=== PATIENT | female | born 1995 | race African-American/Black ===

== ENCOUNTER → 2020-04-14 | Outpatient (CLI) | payer OTHER ==
[~2020-04-14] MED LIST: CLEOCIN HCL300 MG PO; NAPROSYN500 MG PO; NORCO 325 MG-51 TAB PO; ZORVOLEX18 MG PO
== END ==
LOC: COL.RAD 09:00
DX: M25.512 Pain in left shoulder (principal)
CPT/HCPCS: A9585; Q9967

== ENCOUNTER 2020-04-23 15:20 | Emergency (ER) | payer SELFPAY ==
[~2020-04-23] VITALS: Ht 162.6 cm; Wt 109.1 kg
[2020-04-23 15:25] VITALS: TEMP 98.8
[2020-04-23] MEDS ORDERED: EPIPEN 2-PAK1 MG/ML IM (15:37)
[2020-04-23] MEDS ORDERED: PREDNISONE20 MG PO (15:37)
[2020-04-23 17:01] VITALS: BP 117/75; PULSE 105
== END 2020-04-23 17:05 | disposition home or self-care (01) ==
LOC: COL.ER 15:20
DX: T63.461A Toxic effect of venom of wasps, accidental (unintentional), initial encounter (principal); F17.210 Nicotine dependence, cigarettes, uncomplicated; Z79.52 Long term (current) use of systemic steroids
CPT/HCPCS: J7512

== ENCOUNTER 2020-05-24 13:07 | Emergency (ER) | payer MEDICAID ==
[~2020-05-24] VITALS: Ht 162.6 cm; Wt 154.5 kg
[~2020-05-24 13:07] MED LIST changes: +EPIPEN 2-PAK1 MG/ML IM; +PREDNISONE20 MG PO
[2020-05-24 13:13] VITALS: TEMP 97.8
[2020-05-24 14:04] LABS: ALBUMIN 3.8 gm/dL (3.5-5.0); BILIRUBIN,TOTAL 0.3 mg/dL (0.0-1.0); C-REACTIVE PROTEIN 1.8 mg/dL (0.0-0.9); CREATININE, serum 0.58 (0.52-1.25); TOTAL PROTEIN 6.9 gm/dL (6.4-8.2)
[2020-05-24] MEDS ORDERED: VYVANSE70 MG PO (14:23)
[2020-05-24] MEDS ORDERED: SYNTHROID0.125 MG/T PO (14:24)
[2020-05-24] MEDS ORDERED: ZYRTEC 10MG10 MG PO (14:24)
[2020-05-24 14:28] LABS: COLLECTION METHOD CLEAN CATCH
[2020-05-24 14:51] LABS: BASO % 0.4 % (0.0-2.0); EOS # 0.1 (0.0-0.7); EOS % 1.7 % (0-4.0); GRAN % 60.7 % (42.2-75.2); HEMATOCRIT 39.2 % (37.0-47.0); HEMOGLOBIN 12.4 g/dl (12.5-16.0); LYMPH # 2.5 (1.2-3.4); LYMPH % 30.8 % (20.0-51.0); MEAN CELL VOLUME 84 fl (80.0-100.0); MEAN CORPUSCULAR HEMOGLOBIN 27 pg (27.0-31.0); MEAN CORPUSCULAR HGB CONC 32 g/dl (33.0-37.0); MEAN PLATELET VOLUME 10.5 fl (7.4-10.4); MONO # 0.5 (0.1-0.6); PLATELET COUNT 441 K/mm3 (130-400); RED BLOOD COUNT 4.66 M/mm3 (4.10-5.30); REDCELL DISTRIBUTION WIDTH-CV 13.3 % (11.5-14.5)
[2020-05-24 14:58] LABS: MUCOUS Present /lpf; PH 7 (5-8); URINE APPEARANCE Cloudy; URINE BACTERIA Moderate /hpf; URINE BILIRUBIN Negative (NEGATIVE); URINE BLOOD Negative (NEGATIVE); URINE COLOR Yellow; URINE GLUCOSE Negative (NEGATIVE); URINE KETONE Negative (NEGATIVE); URINE LEUKOCYTE ESTERASE 1+ (NEGATIVE); URINE NITRATE Positive (NEGATIVE); URINE PROTEIN(semi-quant) Negative (NEGATIVE); URINE UROBILINOGEN Negative (NEGATIVE)
[2020-05-24] MEDS ORDERED: CIPRO 500MG TA500 MG PO (15:09)
[2020-05-24 15:14] LABS: STREP SCREEN NEGATIVE
[2020-05-24 15:46] VITALS: BP 134/80; PULSE 77
== END 2020-05-24 15:44 | disposition home or self-care (01) ==
LOC: COL.ER 13:07
PROVIDERS: Emergency Medicine
DX: J02.9 Acute pharyngitis, unspecified (principal); R05 Cough; R50.9 Fever, unspecified; F17.210 Nicotine dependence, cigarettes, uncomplicated; Z20.828 Contact with and (suspected) exposure to other viral communicable diseases

== ENCOUNTER 2020-10-11 16:08 | Emergency (ER) | payer MEDICAID ==
[~2020-10-11] VITALS: Ht 162.6 cm; Wt 150.9 kg
[~2020-10-11 16:08] MED LIST changes: +CIPRO 500MG TA500 MG PO; +SYNTHROID0.125 MG/T PO; +VYVANSE70 MG PO; +ZYRTEC 10MG10 MG PO
[2020-10-11 16:18] VITALS: TEMP 97.6
[2020-10-11 17:33] LABS: BASO # 0.1 (0.0-0.2); BASO % 0.5 % (0.0-2.0); EOS # 0.2 (0.0-0.7); EOS % 1.6 % (0-4.0); GRAN # 5.8 (1.4-6.5); GRAN % 59.9 % (42.2-75.2); HEMATOCRIT 41.8 % (37.0-47.0); HEMOGLOBIN 13.1 g/dl (12.5-16.0); LYMPH # 2.8 (1.2-3.4); LYMPH % 28.5 % (20.0-51.0); MEAN CELL VOLUME 83 fl (80.0-100.0); MEAN CORPUSCULAR HEMOGLOBIN 26 pg (27.0-31.0); MEAN CORPUSCULAR HGB CONC 31 g/dl (33.0-37.0); MEAN PLATELET VOLUME 9.4 fl (7.4-10.4); MONO # 0.9 (0.1-0.6); MONO % 8.7 % (1.7-9.3); PLATELET COUNT 491 K/mm3 (130-400); RED BLOOD COUNT 5.01 M/mm3 (4.10-5.30); REDCELL DISTRIBUTION WIDTH-CV 12.8 % (11.5-14.5)
[2020-10-11 17:48] LABS: ALBUMIN 4.3 gm/dL (3.5-5.0); BILIRUBIN,TOTAL 0.3 mg/dL (0.0-1.0); CALCIUM 9.5 mg/dL (8.4-10.2); CREATININE, serum 0.68 (0.52-1.25); POTASSIUM 4.1 mmol/L (3.4-5.0); TOTAL PROTEIN 7.8 gm/dL (6.4-8.2)
[2020-10-11 20:34] VITALS: BP 114/72; PULSE 87
== END 2020-10-11 20:37 | disposition home or self-care (01) ==
LOC: COL.ER 16:08
PROVIDERS: Physician Assistant
DX: S30.1XXA Contusion of abdominal wall, initial encounter (principal); E03.9 Hypothyroidism, unspecified; E66.01 Morbid (severe) obesity due to excess calories; F17.210 Nicotine dependence, cigarettes, uncomplicated; Z68.43 Body mass index [BMI] 50.0-59.9, adult; Z79.890 Hormone replacement therapy; Z88.0 Allergy status to penicillin; Z88.1 Allergy status to other antibiotic agents; Z88.2 Allergy status to sulfonamides; Z88.6 Allergy status to analgesic agent; W01.198A Fall on same level from slipping, tripping and stumbling with subsequent striking against other object, initial encounter
CPT/HCPCS: J1885; J2405; J2550; J7030; Q9967

== ENCOUNTER 2020-11-24 10:03 | Emergency (ER) | payer MEDICAID ==
[~2020-11-24] VITALS: Ht 162.6 cm; Wt 159.5 kg
[2020-11-24 11:07] LABS: BASO % 0.6 % (0.0-2.0); EOS # 0.3 (0.0-0.7); EOS % 4.6 % (0-4.0); GRAN % 57.2 % (42.2-75.2); HEMATOCRIT 37.4 % (37.0-47.0); HEMOGLOBIN 11.6 g/dl (12.5-16.0); LYMPH # 2.2 (1.2-3.4); LYMPH % 32.3 % (20.0-51.0); MEAN CELL VOLUME 85 fl (80.0-100.0); MEAN CORPUSCULAR HEMOGLOBIN 26 pg (27.0-31.0); MEAN CORPUSCULAR HGB CONC 31 g/dl (33.0-37.0); MEAN PLATELET VOLUME 9.3 fl (7.4-10.4); MONO # 0.4 (0.1-0.6); PLATELET COUNT 375 K/mm3 (130-400); RED BLOOD COUNT 4.39 M/mm3 (4.10-5.30)
[2020-11-24 11:22] LABS: ALBUMIN 3.4 gm/dL (3.5-5.0); BILIRUBIN,TOTAL 0.2 mg/dL (0.0-1.0); CALCIUM 8.9 mg/dL (8.4-10.2); CREATININE, serum 0.49 (0.52-1.25); POTASSIUM 3.8 mmol/L (3.4-5.0); TOTAL PROTEIN 6.5 gm/dL (6.4-8.2)
[2020-11-24 11:50] LABS: COLLECTION METHOD CLEAN CATCH
[2020-11-24 11:57] LABS: MUCOUS Present /lpf; PH 5 (5-8); URINE APPEARANCE Hazy; URINE BACTERIA None Seen /hpf; URINE BILIRUBIN Negative (NEGATIVE); URINE BLOOD Negative (NEGATIVE); URINE COLOR Yellow; URINE GLUCOSE Negative (NEGATIVE); URINE KETONE Negative (NEGATIVE); URINE LEUKOCYTE ESTERASE Negative (NEGATIVE); URINE NITRATE Negative (NEGATIVE); URINE PROTEIN(semi-quant) Negative (NEGATIVE); URINE RBC 0-2 /hpf
[2020-11-24] MEDS ORDERED: DOXYCYCLINE 10100 MG PO (14:16)
[2020-11-24 14:54] VITALS: BP 119/80; PULSE 92; TEMP 97.4
== END 2020-11-24 14:54 | disposition home or self-care (01) ==
LOC: COL.ER 10:03
PROVIDERS: Physician Assistant
DX: L03.316 Cellulitis of umbilicus (principal); D64.9 Anemia, unspecified; E03.9 Hypothyroidism, unspecified; F90.9 Attention-deficit hyperactivity disorder, unspecified type; F17.210 Nicotine dependence, cigarettes, uncomplicated; Z90.49 Acquired absence of other specified parts of digestive tract; Z32.02 Encounter for pregnancy test, result negative; Z79.890 Hormone replacement therapy; Z88.0 Allergy status to penicillin; Z88.1 Allergy status to other antibiotic agents; Z88.2 Allergy status to sulfonamides; Z88.6 Allergy status to analgesic agent
CPT/HCPCS: Q9967

== ENCOUNTER 2021-02-19 19:17 | Emergency (ER) | payer MEDICAID ==
[~2021-02-19] VITALS: Ht 162.6 cm; Wt 156.4 kg
[~2021-02-19 19:17] MED LIST changes: +DOXYCYCLINE 10100 MG PO
[2021-02-19 19:19] VITALS: TEMP 98
[2021-02-19 20:00] LABS: BASO % 0.5 % (0.0-2.0); EOS # 0.3 (0.0-0.7); EOS % 3.1 % (0-4.0); GRAN # 4.9 (1.4-6.5); GRAN % 60.3 % (42.2-75.2); HEMATOCRIT 41.6 % (37.0-47.0); HEMOGLOBIN 13.1 g/dl (12.5-16.0); LYMPH # 2.5 (1.2-3.4); MEAN CELL VOLUME 82 fl (80.0-100.0); MEAN CORPUSCULAR HEMOGLOBIN 26 pg (27.0-31.0); MEAN CORPUSCULAR HGB CONC 32 g/dl (33.0-37.0); MEAN PLATELET VOLUME 9.8 fl (7.4-10.4); MONO # 0.4 (0.1-0.6); MONO % 4.5 % (1.7-9.3); PLATELET COUNT 441 K/mm3 (130-400); RED BLOOD COUNT 5.06 M/mm3 (4.10-5.30); REDCELL DISTRIBUTION WIDTH-CV 12.1 % (11.5-14.5)
[2021-02-19 21:23] LABS: ALANINE AMINOTRANSFERASE 16 U/L (4-34); ALBUMIN 3.6 gm/dL (3.5-5.0); ALKALINE PHOSPHATASE 62 U/L (50-136); ANION GAP 7 mmol/L (7-16); AST,SGOT 23 U/L (15-37); BILIRUBIN,TOTAL 0.2 mg/dL (0.0-1.0); BLOOD UREA NITROGEN 10 mg/dL (7-17); CALCIUM 9.1 mg/dL (8.4-10.2); CARBON DIOXIDE 21 mmol/L (22-30); CHLORIDE 107 mmol/L (98-107); CREATININE, serum 0.54 (0.52-1.25); GLUCOSE 101 mg/dL (74-106); POTASSIUM 3.9 mmol/L (3.4-5.0); SODIUM 136 mmol/L (137-145); TOTAL PROTEIN 6.8 gm/dL (6.4-8.2)
[2021-02-19 21:26] LABS: PROLACTIN 14.3 ng/mL (3.0-18.6)
[2021-02-19 21:37] LABS: C-REACTIVE PROTEIN 1.7 mg/dL (0.0-0.9)
[2021-02-19 21:40] LABS: ALCOHOL(ethanol),MEDICAL < 10 mg/dL
[2021-02-19 21:51] VITALS: BP 135/79; PULSE 89
[2021-02-19 21:57] LABS: TRICYCLIC ANTIDEPRESS URINE NEGATIVE
[2021-02-19 22:50] LABS: COLLECTION METHOD CLEAN CATCH
[2021-02-19 22:55] LABS: MUCOUS Present /lpf; PH 5 (5-8); SQUAMOUS EPITHELIAL 0-2 /hpf; URINE APPEARANCE Hazy; URINE BACTERIA None Seen /hpf; URINE BILIRUBIN Negative (NEGATIVE); URINE BLOOD Negative (NEGATIVE); URINE COLOR Yellow; URINE GLUCOSE Negative (NEGATIVE); URINE KETONE Negative (NEGATIVE); URINE LEUKOCYTE ESTERASE Negative (NEGATIVE); URINE NITRATE Negative (NEGATIVE); URINE PROTEIN(semi-quant) Negative (NEGATIVE); URINE RBC 0-2 /hpf; URINE UROBILINOGEN Negative (NEGATIVE)
== END 2021-02-19 21:53 | disposition home or self-care (01) ==
LOC: COL.ER 19:17
PROVIDERS: Nurse Practitioner Primary Care
DX: M79.2 Neuralgia and neuritis, unspecified (principal); E06.3 Autoimmune thyroiditis; F17.210 Nicotine dependence, cigarettes, uncomplicated; Z79.890 Hormone replacement therapy; Z88.0 Allergy status to penicillin; Z88.1 Allergy status to other antibiotic agents
CPT/HCPCS: J7030

== ENCOUNTER → 2021-04-15 | Outpatient (CLI) | payer MEDICAID ==
[~2021-04-15] MED LIST changes: +IMITREX50 MG PO; +PLAQUENIL 200M200 MG PO; +PROAIR HFA0.09 MG/AC IH; +TIROSINT100 MC1 PO; +ZOFRAN ODT8 MG PO
== END ==
LOC: COL.RAD 09:18
DX: S63.591A Other specified sprain of right wrist, initial encounter (principal)
CPT/HCPCS: A9585; Q9967

== ENCOUNTER 2021-05-20 05:17 | Day surgery (SDC) | payer MEDICAID ==
[~2021-05-20] VITALS: Ht 162.6 cm; Wt 160.5 kg
[~2021-05-20 05:17] MED LIST changes: -IMITREX50 MG PO; -PLAQUENIL 200M200 MG PO; -PROAIR HFA0.09 MG/AC IH; -TIROSINT100 MC1 PO; -ZOFRAN ODT8 MG PO
[2021-05-20] MEDS ORDERED: IMITREX50 MG PO (06:27)
[2021-05-20] MEDS ORDERED: PLAQUENIL 200M200 MG PO (06:28)
[2021-05-20] MEDS ORDERED: ZOFRAN ODT8 MG PO (06:28)
[2021-05-20] MEDS ORDERED: TIROSINT100 MC1 PO (06:31)
[2021-05-20] MEDS ORDERED: PROAIR HFA0.09 MG/AC IH (06:33)
[2021-05-20 06:34] VITALS: BP 99/53; PULSE 81; TEMP 97.5
[2021-05-20] MEDS ORDERED: NORCO 325 MG-51 TAB PO (08:07)
[2021-05-20 09:00] VITALS: BP 118/70; PULSE 99
--- NOTE | 2021-05-20 09:00 | NUR ---
Patient returns to room 8 per cart from PACU accompanied by Corina ESPINOZA and is awake and alert. Sitting up on cart and is holding upper abdomen. Temp 97.2 and room air sats 93%. Dressing at umbilicus noted with scant bloody drainage. IV fluids converted to INT. Patient encouraged to walk to help relieve discomfort. Up walking in hallway with two person assist. States that the movement is helping. Uses restroom and is able to void. Returns to room and sits on cart. States that she is having less discomfort.
[2021-05-20 09:15] VITALS: BP 127/81; PULSE 87
--- NOTE | 2021-05-20 09:15 | NUR ---
Eating applesauce and drinking apple juice. Room air sats 95%.
[2021-05-20 09:30] VITALS: BP 120/54; PULSE 89; TEMP 97.9
--- NOTE | 2021-05-20 09:30 | NUR ---
Resting without complaints of further discomfort. Tolerated snack.
[2021-05-20 09:45] VITALS: BP 116/67; PULSE 99
--- NOTE | 2021-05-20 09:45 | NUR ---
Attempting to call ride. Denies nausea or pain.
[2021-05-20 10:00] VITALS: BP 123/69; PULSE 91
--- NOTE | 2021-05-20 10:00 | NUR ---
Awaiting ride home.
--- NOTE | 2021-05-20 10:20 | NUR ---
INT discontinued and patient dresses self. Continues to deny pain or nausea.
--- NOTE | 2021-05-20 10:51 | NUR ---
Dismissal instructions given and voices understanding of these. Provided follow up appointment date and time.
--- NOTE | 2021-05-20 10:59 | NUR ---
Patient dismissed to home driven by friend and taken to the front door per wheelchair and assisted into vehicle with instructions in hand.
== END 2021-05-20 10:59 | disposition home or self-care (01) ==
LOC: SDCO 05:17
DX: K63.89 Other specified diseases of intestine (principal); F17.290 Nicotine dependence, other tobacco product, uncomplicated; M12.30 Palindromic rheumatism, unspecified site; E06.3 Autoimmune thyroiditis; E66.01 Morbid (severe) obesity due to excess calories; F90.9 Attention-deficit hyperactivity disorder, unspecified type; R06.02 Shortness of breath; Z68.44 Body mass index [BMI] 60.0-69.9, adult; Z20.822 Contact with and (suspected) exposure to COVID-19; Z79.890 Hormone replacement therapy; Z79.899 Other long term (current) drug therapy
CPT/HCPCS: J0330; J0690; J1100; J1170; J1885; J2250; J2405; J2704; J2795; J3010; J7120

== ENCOUNTER → 2021-09-13 15:29 | Outpatient (CLI) | payer MEDICAID ==
[2021-09-13 13:10] VITALS: BP 127/73; PULSE 74; TEMP 97.8
[2021-09-13 13:25] VITALS: BP 128/64; PULSE 71; TEMP 97.8
[2021-09-13 13:40] VITALS: BP 121/96; PULSE 65; TEMP 97.8
[2021-09-13 13:55] VITALS: BP 123/69; PULSE 64; TEMP 97.8
[2021-09-13 14:10] VITALS: BP 134/70; PULSE 64; TEMP 97.8
[2021-09-13 14:25] VITALS: BP 128/73; PULSE 72; TEMP 97.8
[~2021-09-13 15:29] MED LIST changes: +IMITREX50 MG PO; +IMURAN 50MG TAB50 MG PO; +PLAQUENIL 200M200 MG PO; +PROAIR HFA0.09 MG/AC IH; +TIROSINT100 MC1 PO; +TOPAMAX50 MG PO; +ZOFRAN ODT8 MG PO
== END | disposition home or self-care (01) ==
LOC: EUO 12:30
DX: U07.1 COVID-19 (principal); E66.9 Obesity, unspecified; D84.9 Immunodeficiency, unspecified
CPT/HCPCS: M0245

== ENCOUNTER 2022-04-06 12:21 | Emergency (ER) | payer MEDICAID ==
[~2022-04-06] VITALS: Ht 162.6 cm; Wt 154.5 kg
[2022-04-06 12:57] VITALS: TEMP 98.3
[2022-04-06 14:27] LABS: BASO % 0.2 % (0.0-2.0); EOS % 0.4 % (0.0-4.0); GRAN # 7.1 K/mm3 (1.4-6.5); GRAN % 71.5 % (42.2-75.2); HEMATOCRIT 39.9 % (37.0-47.0); HEMOGLOBIN 12.6 g/dl (12.5-16.0); LYMPH # 2.2 K/mm3 (1.2-3.4); LYMPH % 21.6 % (20.0-51.0); MEAN CELL VOLUME 83 fl (80.0-100.0); MEAN CORPUSCULAR HEMOGLOBIN 26 pg (27-31); MEAN CORPUSCULAR HGB CONC 32 g/dl (33.0-37.0); MEAN PLATELET VOLUME 9.4 fl (7.4-10.4); MONO # 0.6 K/mm3 (0.1-0.6); MONO % 6.1 % (1.7-9.3); PLATELET COUNT 377 K/mm3 (130-400); RED BLOOD COUNT 4.81 M/mm3 (4.10-5.30); REDCELL DISTRIBUTION WIDTH-CV 12.2 % (11.5-14.5)
[2022-04-06 14:45] LABS: ALBUMIN 3.6 gm/dL (3.5-5.0); BILIRUBIN,TOTAL 0.4 mg/dL (0.2-1.2); CALCIUM 9.3 mg/dL (8.4-10.2); CREATININE, serum 0.78 mg/dL (0.57-1.11); POTASSIUM 3.3 mmol/L (3.5-4.5)
[2022-04-06 15:46] VITALS: BP 133/76; PULSE 90
== END 2022-04-06 15:50 | disposition home or self-care (01) ==
LOC: COL.ER 12:21
PROVIDERS: Physician Assistant
DX: R06.02 Shortness of breath (principal)

== ENCOUNTER 2022-04-14 12:43 | Emergency (ER) | payer MEDICAID ==
[~2022-04-14] VITALS: Ht 162.6 cm; Wt 155.5 kg
[2022-04-14 13:14] VITALS: TEMP 98
[2022-04-14 14:24] LABS: BASO % 0.2 % (0.0-2.0); EOS # 0.1 K/mm3 (0.0-0.7); EOS % 0.9 % (0.0-4.0); GRAN # 6.3 K/mm3 (1.4-6.5); GRAN % 66.5 % (42.2-75.2); HEMATOCRIT 37.7 % (37.0-47.0); HEMOGLOBIN 12.1 g/dl (12.5-16.0); LYMPH # 2.6 K/mm3 (1.2-3.4); LYMPH % 27.2 % (20.0-51.0); MEAN CELL VOLUME 84 fl (80.0-100.0); MEAN CORPUSCULAR HEMOGLOBIN 27 pg (27-31); MEAN CORPUSCULAR HGB CONC 32 g/dl (33.0-37.0); MEAN PLATELET VOLUME 9.5 fl (7.4-10.4); MONO # 0.5 K/mm3 (0.1-0.6); PLATELET COUNT 357 K/mm3 (130-400); RED BLOOD COUNT 4.47 M/mm3 (4.10-5.30); REDCELL DISTRIBUTION WIDTH-CV 12.6 % (11.5-14.5)
[2022-04-14 14:32] VITALS: BP 133/87
[2022-04-14 14:48] LABS: ALANINE AMINOTRANSFERASE 16 U/L (0-55); ALBUMIN 3.3 gm/dL (3.5-5.0); ALKALINE PHOSPHATASE 57 U/L (40-150); ANION GAP 10 mmol/L (7-16); AST,SGOT 12 U/L (5-34); BILIRUBIN,TOTAL 0.3 mg/dL (0.2-1.2); BLOOD UREA NITROGEN 7 mg/dL (7-19); CARBON DIOXIDE 25 mmol/L (22-29); CHLORIDE 106 mmol/L (98-107); CREATININE, serum 0.71 mg/dL (0.57-1.11); GLUCOSE 80 mg/dL (70-99); POTASSIUM 3.5 mmol/L (3.5-4.5); SODIUM 141 mmol/L (136-145); TOTAL PROTEIN 6.5 gm/dL (6.2-8.1)
[2022-04-14 14:51] VITALS: PULSE 86
[2022-04-14 14:55] LABS: TROPONIN-I < 0.010 ng/mL (0.00-0.033)
== END 2022-04-14 14:55 | disposition left against medical advice (07) ==
LOC: COL.ER 12:43
PROVIDERS: Physician Assistant
DX: R07.89 Other chest pain (principal); R51.9 Headache, unspecified; E66.01 Morbid (severe) obesity due to excess calories; Z79.899 Other long term (current) drug therapy
CPT/HCPCS: J1885; J2765; J7030

== ENCOUNTER → 2022-04-24 | Outpatient (CLI) | payer MEDICAID | LOC: COL.PUL 09:39 | DX: R06.02 Shortness of breath (principal) | CPT/HCPCS: J7674 ==

== ENCOUNTER 2022-06-27 06:16 | Emergency (ER) | payer MEDICAID ==
[~2022-06-27] VITALS: Ht 162.6 cm; Wt 153.6 kg
[2022-06-27 06:23] VITALS: BP 115/80; TEMP 97.5
[2022-06-27 06:56] VITALS: PULSE 82
== END 2022-06-27 06:56 | disposition home or self-care (01) ==
LOC: COL.ER 06:16
DX: M26.622 Arthralgia of left temporomandibular joint (principal)

== ENCOUNTER → 2022-09-12 | Outpatient (CLI) | payer MEDICAID ==
[~2022-09-12] MED LIST changes: +SINGULAIR 110 MG/TAB PO; +VITAMIN D 50,1.25 MG PO; +ZANAFLEX CAPSULE4 MG PO; +ZOFRAN8 MG PO
== END ==
LOC: COL.CARD 07-26 13:00
DX: G43.009 Migraine without aura, not intractable, without status migrainosus (principal); G47.19 Other hypersomnia; R53.1 Weakness; R41.89 Other symptoms and signs involving cognitive functions and awareness

== ENCOUNTER → 2022-10-17 | Outpatient (CLI) | payer MEDICAID ==
[~2022-10-17] MED LIST changes: -VITAMIN D 50,1.25 MG PO; -ZANAFLEX CAPSULE4 MG PO; -ZOFRAN8 MG PO
== END ==
LOC: ZCOL.LAB 10:35
DX: B34.9 Viral infection, unspecified (principal); Z20.822 Contact with and (suspected) exposure to COVID-19

== ENCOUNTER 2023-02-23 08:50 | Outpatient (CLI) | payer MEDICAID ==
[~2023-02-23] VITALS: Ht 162.6 cm; Wt 151.9 kg
[~2023-02-23 08:50] MED LIST changes: +VITAMIN D 50,1.25 MG PO; +ZANAFLEX CAPSULE4 MG PO
[2023-02-23] MEDS ORDERED: ZOFRAN8 MG PO (09:41)
[2023-02-23 09:43] VITALS: BP 123/82; PULSE 72; TEMP 97.7
[2023-02-23 10:35] VITALS: BP 99/80; PULSE 59
[2023-02-23 10:45] VITALS: BP 113/80; PULSE 60
[2023-02-23 11:00] VITALS: BP 116/85; PULSE 59
[2023-02-23 11:15] VITALS: BP 105/69; PULSE 68
[2023-02-23 11:19] LABS: CSF APPEARANCE CLEAR; CSF COLOR COLORLESS
[2023-02-23 11:20] LABS: CSF RBC 1 /mm3 (0-0)
[2023-02-23 11:29] LABS: GLUCOSE,CSF 48 mg/dL (40-70); TOTAL PROTEIN,CSF 18 mg/dL (15-45)
[2023-02-23 11:30] VITALS: BP 100/65; PULSE 62
--- NOTE | 2023-02-23 11:43 | NUR ---
DC instructions reviewed with pt and friend. They express understanding. Pt c/o minor aching at puncture site but denies need for medication. Bandaid remains clean, dry and intact over puncuture site. She is able to transfer from bed to wheelchair independantly. She is able to walk from wheelchair to friend's car. Free of complaints at time of discharge.
[2023-02-26 14:10] LABS: ALBUMUN SERUM 3.6 g/dL (3.9-5.0); IGG,SERUM 825 mg/dL (586-1602)
[2023-02-26 16:09] LABS: CSF,IGG 1.1 mg/dL (0.0-6.7)
[2023-02-28 13:12] LABS: ALBUMIN CSF 8 mg/dL (7-29); CSF SYNTHESIS RATE -1.9 mg/day (())
== END 2023-02-23 11:43 | disposition home or self-care (01) ==
LOC: COL.RAD 08:50
PROVIDERS: Psychiatry & Neurology Neurology
DX: G43.009 Migraine without aura, not intractable, without status migrainosus (principal); R79.89 Other specified abnormal findings of blood chemistry; G47.19 Other hypersomnia; M26.621 Arthralgia of right temporomandibular joint; R20.2 Paresthesia of skin

== ENCOUNTER 2024-03-16 05:46 | Emergency (ER) | payer MEDICAID ==
[~2024-03-16] VITALS: Ht 162.6 cm; Wt 145.5 kg
[~2024-03-16 05:46] MED LIST changes: +ZOFRAN8 MG PO
[2024-03-16 05:49] VITALS: TEMP 97.6
[2024-03-16 06:31] LABS: COLLECTION METHOD CLEAN CATCH
[2024-03-16 06:33] LABS: BASO % 0.3 % (0.0-2.0); EOS # 0.1 K/mm3 (0.0-0.7); EOS % 0.7 % (0.0-4.0); GRAN # 7.9 K/mm3 (1.4-6.5); GRAN % 70.1 % (42.2-75.2); HEMATOCRIT 41.4 % (37.0-47.0); HEMOGLOBIN 13.5 g/dl (12.5-16.0); LYMPH # 2.7 K/mm3 (1.2-3.4); LYMPH % 23.8 % (20.0-51.0); MEAN CELL VOLUME 83 fl (80.0-100.0); MEAN CORPUSCULAR HEMOGLOBIN 27 pg (27-31); MEAN CORPUSCULAR HGB CONC 33 g/dl (33.0-37.0); MEAN PLATELET VOLUME 9.3 fl (7.4-10.4); MONO # 0.6 K/mm3 (0.1-0.6); MONO % 4.9 % (1.7-9.3); PLATELET COUNT 439 K/mm3 (130-400); REDCELL DISTRIBUTION WIDTH-CV 11.8 % (11.5-14.5)
[2024-03-16 06:41] LABS: PH 5.5 (5.0-8.5); URINE APPEARANCE CLEAR (CLEAR/HAZY); URINE BLOOD NEGATIVE (NEGATIVE); URINE COLOR Dark Yellow (YELLOW); URINE GLUCOSE NEGATIVE (NEGATIVE); URINE KETONE TRACE (NEGATIVE); URINE NITRATE NEGATIVE (NEGATIVE); URINE PROTEIN(semi-quant) 1+ (NEGATIVE)
[2024-03-16 06:53] LABS: ALBUMIN 3.7 g/dL (3.5-5.0); BILIRUBIN,TOTAL 0.2 mg/dL (0.2-1.2); CALCIUM 9.2 mg/dL (8.4-10.2); CREATININE, serum 0.8 mg/dL (0.57-1.11); POTASSIUM 3.7 mEq/L (3.5-4.5); TOTAL PROTEIN 7.5 g/dl (6.2-8.1)
[2024-03-16] MEDS ORDERED: Iohexol 300 - 100 ML VIAL IV ONE (06:58)
[2024-03-16] MEDS ORDERED: NS 50 ML IV SCH (06:58)
[2024-03-16 07:53] VITALS: BP 127/71; PULSE 83
== END 2024-03-16 07:53 | disposition home or self-care (01) ==
LOC: COL.ER 05:46
PROVIDERS: Emergency Medicine
DX: M54.50 Low back pain, unspecified (principal); R32 Unspecified urinary incontinence; F17.200 Nicotine dependence, unspecified, uncomplicated
CPT/HCPCS: Q9967